=== PATIENT | female | born 1970 ===

== ENCOUNTER 2024-05-07 16:53 | Emergency (ER) | payer MEDICARE, MEDICAID, SELFPAY ==
[2024-05-07 16:56] VITALS: BP 125/86; PULSE 89; RESP 16; TEMP 36.4; O2SAT 97
--- NOTE | 2024-05-07 17:14 | W.ED.GENAD ---
Discharge Plan Disposition Patient Disposition: Home Condition: Stable Discharge Details Clinical Impression: Musculoskeletal strain, Lumbago Primary Care Provider: Unknown,Unknown ED Provider: Sarah Don Home Meds and New Rx's Prescriptions: New prednisone 50 mg tablet 50 mg PO DAILY 5 Days Qty: 5 0RF Rx Instructions: Take 1 tablet by mouth daily for the next 5 days lidocaine 5 % adhesive patch,medicated 1 patch topical DAILY Qty: 15 0RF Rx Instructions: leave on most painful area for up to 12 hrs cyclobenzaprine 10 mg tablet 10 mg PO BID PRN (Reason: muscle spasm) Qty: 7 0RF Rx Instructions: Take one tablet by mouth twice daily as needed for spasm Discharge Instructions Instructions: Managing acute pain at home, Low Back Pain ED Additional Instructions: Please take the muscle relaxers, steroids daily and apply lidocaine patches once daily as prescribed. Consider chiropractor. Alternate ice and heat. Follow up with primary care provider in 3-5 days. Return to ED sooner if any worsening pain not relieved by medications, loss of bowel or bladder control, or concerns. Please take Tylenol or Ibuprofen with food every 4-6 hours as needed for pain and swelling. Referrals: Primary Care Provider [Outside] - 3 days Discharge Data Discharge Date/Time-TO BE ENTERED AT DEPARTURE: 05/07/24 17:39 HPI General Mode of arrival: ambulatory. Date/Time Provider Initiated Documentation: 05/07/24 17:04. Limitations to Documentation: no limitations. Information obtained by: patient, RN notes reviewed and old records reviewed. HPI Narrative: 53-year-old female presents to the ER accompanied by her family with a chief complaint of upper back pain which radiates down into her lower back associated with leg numbness. She was seen at [facility] yesterday and had a CT. Patient was sent home with Tylenol and she reports that that is not working. Denies any new injuries. Denies any loss of bowel or bladder control. Denies any saddle anesthesia. She is tearful upon arrival does have some midline T-spine and L-spine tenderness. No crepitus or step-off noted. Related Data Home Medications ?Medication ?Instructions ?Recorded ?Confirmed cyclobenzaprine 10 mg tablet 10 mg PO BID PRN muscle spasm #7 05/07/24 tabs lidocaine 5 % topical patch 1 patch topical DAILY #15 ea 05/07/24 prednisone 50 mg tablet 50 mg PO DAILY inflammation 5 days 05/07/24 #5 tabs Previous Rx's ?Medication ?Instructions ?Recorded cyclobenzaprine 10 mg tablet 10 mg PO BID PRN muscle spasm #7 05/07/24 tabs lidocaine 5 % topical patch 1 patch topical DAILY #15 ea 05/07/24 prednisone 50 mg tablet 50 mg PO DAILY inflammation 5 days 05/07/24 #5 tabs Allergies Allergy/AdvReac Type Severity Reaction Status Date / Time morphine Allergy Severe heart Verified 05/07/24 17:03 codeine AdvReac Intermediate vomiting Verified 05/07/24 17:03 General Stated Complaint: Nk/Back Pain TIFFANY: 3 Review of Systems All systems reviewed & are unremarkable except as noted in HPI and below Musculoskeletal Musculoskeletal: Reports as per HPI, Reports back pain, Reports radiating pain into limb and Reports stiffness Exam Narrative Exam Narrative: Constitutional: Alert and oriented x3. Appears stated age. Normal body habitus. Head: Normocephalic, no trauma. Eyes: Pupils PERRL, Red reflex noted, EOM's intact. Eyelids symmetrical without lesions, discharge, or swelling. Chest: RRR, Normal S1, S2, distal pulses intact. Resp: Lungs clear to auscultation bilaterally, no wheezes, rales, or rhonchi. Musculoskeletal: Stiff gait, midline T-spine and L-spine tenderness, no crepitus or step-off. Moves all 4 extremities without difficulty. Skin: No suspicious rashes or lesions. Capillary refill less than 2 sec. Neurologic: Cranial nerves II-XII intact. Alert and oriented x 3. Motor: No deficits noted. Sensory: Intact bilaterally all 4 extremities. Hematologic/Lymphatic: No ecchymosis, no lymphadenopathy. Course Vital Signs Vital signs: Vital Signs Temperature 36.4 C 05/07/24 16:56 Pulse 89 05/07/24 16:56 Respiratory Rate 16 05/07/24 16:56 Blood Pressure 125/86 05/07/24 16:56 Pulse Oximetry 97 05/07/24 16:56 Temperature 36.4 C 05/07/24 16:56 Temperature Source Temporal Artery Scan 05/07/24 16:56 Pulse 89 05/07/24 16:56 Respiratory Rate 16 05/07/24 16:56 Blood Pressure 125/86 05/07/24 16:56 Blood Pressure Position Sitting 05/07/24 16:56 Pulse Oximetry 97 05/07/24 16:56 Oxygen Delivery Method Room Air 05/07/24 16:56 Oxygen Flow Rate 0 05/07/24 16:56 Pain Level 8 05/07/24 16:56 Medical Decision Making 53-year-old female presents to the ER accompanied by her family with a chief complaint of upper back pain which radiates down into her lower back associated with leg numbness. She was seen at [facility] yesterday and had a CT. Patient was sent home with Tylenol and she reports that that is not working. Denies any new injuries. Denies any loss of bowel or bladder control. Denies any saddle anesthesia. She is tearful upon arrival does have some midline T-spine and L-spine tenderness. No crepitus or step-off noted. 60 mg prednisone p.o. ordered, Flexeril and lidocaine patch. Due to patient's recent CT imaging deferred at this time. Patient given the medications, ambulatory from department without assistance at discharge. Patient discharged with follow-up care with PCP. This text was generated using [email or web address] dictation system, please disregard any oddities of phrase or misspellings. Quality:SDOH Health Related Social Needs: No Data to Display PFSH All Active Problems (Updated 05/07/24 @ 17:19 by Sarah Don NP) Lumbago (Acute) Musculoskeletal strain (Acute) Social History Smoking risk assessment performed?: No Substance use type: does not use Do you feel safe at home: Yes Do you feel safe in your relationship?: Yes
[2024-05-07] MEDS: Cyclobenzaprine 10 MG TAB PO (17:36)
[2024-05-07] MEDS: Cyclobenzaprine 10 MG TAB, 3 TABS/BTL PO (17:37)
[2024-05-07] MEDS: Lidocaine 5% Patch 1 PATCH TP (17:37)
[2024-05-07] MEDS: predniSONE 20 MG TAB 60 MG PO (17:37)
== END 2024-05-07 17:39 | disposition home or self-care (01) ==
LOC: ER 18:10
PROVIDERS: Emergency Provider Registered Nurse Emergency
DX: M54.50 Low back pain, unspecified (principal)
CPT/HCPCS: 99283; J7512